=== PATIENT | female | born 1955 | race Caucasian/White ===

== ENCOUNTER 2020-09-03 19:31 | Emergency (ER) | payer SELFPAY ==
[~2020-09-03] VITALS: Ht 160 cm; Wt 54.5 kg
[2020-09-03 19:49] VITALS: BP 174/72; Ht 160 cm; Wt 54.5 kg
[2020-09-03 20:48] LABS: BASOPHILS 0.2 % (0-2); EOSINOPHILS 0.7 % (0-7); HEMATOCRIT 46.5 % (36.0-48.0); IMMATURE GRANULOCYTES 0.2 % (0-5); LYMPHOCYTE ABS# 0.74 10x3/uL (1.18-3.74); LYMPHOCYTES 17.3 % (15-50); MCH 34.3 pg (26.0-34.0); MCHC 34.4 g/dL (31.0-37.0); MCV 99.8 fL (80.0-100.0); MEAN PLATELET VOLUME 11.1 fL (7.4-10.4); MONOCYTES 9.6 % (2-11); NEUTROPHIL ABS# 3.08 10x3/uL (1.56-6.13); PLATELET COUNT 104 10x3/uL (130-400); RBC 4.66 10x6/uL (4.00-5.40); RDW 12.6 % (11.5-14.5); WBC 4.3 10x3/uL (4.8-10.8)
[2020-09-03 20:58] LABS: ANION GAP 15.9 mmol/L (8-16); CALCIUM 9.5 mg/dL (8.5-10.1); CARBON DIOXIDE 24.1 mmol/L (21.0-32.0)
[2020-09-03 21:05] LABS: ALBUMIN 3.6 g/dL (3.4-5.0); BILIRUBIN - TOTAL 1.17 mg/dL (0.2-1.3); MAGNESIUM - SERUM 1.8 mg/dL (1.8-2.4); PROTEIN - SERUM 8.3 g/dL (6.4-8.2)
[2020-09-03 23:33] LABS: BILIRUBIN NEGATIVE (NEGATIVE); KETONE NEGATIVE (NEGATIVE); NITRITE NEGATIVE (NEGATIVE); UROBILINOGEN 4 mg/dL (< 2)
[2020-09-03 23:41] LABS: UDS - AMPHET NEGATIVE QUAL (NEGATIVE); UDS - BARB NEGATIVE QUAL (NEGATIVE); UDS - BENZO POSITIVE QUAL (NEGATIVE); UDS - COCAINE NEGATIVE QUAL (NEGATIVE); UDS - OPIATE NEGATIVE QUAL (NEGATIVE); UDS - PCP NEGATIVE QUAL (NEGATIVE); UDS - THC POSITIVE QUAL (NEGATIVE)
[2020-09-03] MEDS ORDERED: ZOFRAN ODT4 MG/UDTAB PO (23:51)
[2020-09-03] MEDS ORDERED: ATIVAN1 MG PO (23:51)
== END 2020-09-04 00:44 | disposition home or self-care (01) ==
LOC: D.ER 19:31
PROVIDERS: Family Medicine
DX: R56.9 Unspecified convulsions (principal); K76.0 Fatty (change of) liver, not elsewhere classified; R79.89 Other specified abnormal findings of blood chemistry